=== PATIENT | female | born 1945 | race Caucasian/White ===

== ENCOUNTER 2016-08-06 21:17 | Inpatient (IN) | payer OTHER ==
[2016-08-06] MEDS ORDERED: IPRATROPIUM/ALBUTEROL SULFATE 3 ML NEB NEB ONE (21:27)
[2016-08-06] MEDS ORDERED: ONDANSETRON 4 MG/2 ML VIAL IVP ONE (21:27)
[2016-08-06] MEDS ORDERED: LORazepam 2 MG/1 ML VIAL IVP ONE (21:27)
[2016-08-06] MEDS ORDERED: Sodium Chloride 0.9% 1,000 ML PRIMARY IV ONE (21:27)
--- NOTE | 2016-08-06 21:35 | PDOC ---
Dyspnea HPI - General Chief Complaint: Respiratory Complaint Stated Complaint: SOB Date Seen by Provider: 08/06/16 Time Seen by Provider: 21:30 Source: POSITIVE: Patient, Spouse Exam Limitations: POSITIVE: No limitations Treatment Prior to Arrival: REPORTS: Oxygen Nurse's Notes Reviewed & Considered: Yes - History of Present Illness Initial Comments: Patient comes in today with a chief complaint of shortness of breath. Patient is complaining of shortness of breath and chest pressure. Her symptoms began several days ago while visiting in [place]. Her shortness of breath at that time seemed to improve slightly on her way rest until arrived in [place] last night. Bleeding [place] today and continuing to [place] her shortness of breath has continued to get worse. He is now unable to speak in full sentences complaining of chest pressure that is nonradiating. She has a history of 3 previous MIs, stent placement, open heart surgery for valve replacement. She denies smoking however her does smoke. Presently patient lives in [facility] at approximately 3000 feet of elevation. She has had nausea and an episode of vomiting. Denies any diarrhea. She has intermittent abdominal distention and abdominal pain that has been of long-standing duration. She denies any hematuria or dysuria, no rashes. Body Location Affected: REPORTS: Chest Timing: REPORTS: Constant Duration: Unknown Severity: Severe Quality: REPORTS: Pressure Initiating Event: REPORTS: Upper Respiratory Illness Context: REPORTS: Sleep (Patient must sleep sitting up.) Exacerbated By: REPORTS: Exertion, Laying Flat, Coughing Associated Symptoms: REPORTS: Fever, Chills, Sweating, Chest Discomfort, Left Chest, Chest Tightness, Painful Breathing, Leg Pain, Calf Pain ( left greater than right with calf swelling present), Ankle Swelling (Bilateral leg edema +2 with left greater than right), Leg Swelling, Anxiety Similar Symptoms Previously: No Recently seen/treated/hospitalized: No Any Prior Injuries Related to Current Complaint?: No - Patient Home Medications Home Medications: Home Medications Amlodipine Besylate 5 mg PO DAILY 08/06/16 Bisoprolol Fumarate 5 mg PO DAILY 08/06/16 Dabigatran Etexilate Mesylate [Pradaxa] 110 mg PO DAILY 08/06/16 Dexlansoprazole [Dexilant] 60 mg PO DAILY 08/06/16 Diamicron 30 mg PO DAILY 08/06/16 Estradiol 0.5 mg PO DAILY 08/06/16 Furosemide [Lasix] 40 mg PO DAILY 08/06/16 LORazepam Tab [Ativan Tab] 1 mg PO DAILY 08/06/16 Mirabegron [Myrbetriq] 50 mg PO DAILY 08/06/16 Paroxetine HCl [Paxil] 20 mg PO DAILY 08/06/16 Rosuvastatin Calcium 10 mg PO DAILY 08/06/16 Spironolactone 25 mg PO DAILY 08/06/16 Telmisartan 80 mg PO DAILY 08/06/16 metFORMIN Tab [Glucophage Tab] 500 mg PO DAILY 08/06/16 - Patient Allergies Allergies/Adverse Reactions: Allergies Allergy/AdvReac Type Severity Reaction Status Date / Time codeine AdvReac SHORTNESS Verified 08/06/16 21:32 OF BREATH ROS - Limitations ROS Limitations: No Limitations Constitution: REPORTS: Chills, Fever, Diaphoresis Cardiovascular: REPORTS: Chest Pain, Heart Palpitations Respiratory: REPORTS: Cough Productive, Hurts To Breathe, Shortness Of Breath Neurological: REPORTS: Denies Neuro Symptoms Gastrointestinal: REPORTS: Abdominal Pain, Nausea, Vomitting Endocrine: REPORTS: Denies Symptoms Musculoskeletal: REPORTS: Calf Pain (Left calf pain), Lower Extremity Swelling ( Bilateral lower extremity swelling left greater than right) Genitourinary: REPORTS: Denies Symptoms Eyes: REPORTS: Denies Symptoms ENT: REPORTS: Denies Symptoms Skin: REPORTS: Denies Skin Symptoms Lympathic: REPORTS: Denies Lympathic Symptoms Immunologic: POSITIVE: Denies Symptoms Psychiatric: POSITIVE: Anxiety Dyspnea Physical Exam - General Appearance General Appearance: REPORTS: Alert, Cooperative, No Evidence of Trauma, Severe Distress - HEENT HEENT: POSITIVE: Head Inspection Nml, Eyes Inspection Nml, Ears Inspection Nml, Nose Inspection Nml, PERRL, EOMI - Neck Neck: REPORTS: Normal Inspection - Respiratory Respiratory: REPORTS: Respiratory Distress, Wheezes, Prolonged Expirations, Accessory Muscle Use, Decreased Air Movement, Speaks Broken Sentences - Cardiovascular Cardiovascular: REPORTS: Equal Pulses, Strong Pulses, No Murmur, No Gallop, No Friction Rub, Tachycardia Peripheral Pulses: Radial (R): 3+, Radial (L): 3+ - Abdomen Abdomen: Soft: (All Quadrants), Normal Bowel Sounds: (All Quadrants), Denies Tenderness: (All Quadrants) - Skin Skin: REPORTS: Intact, Normal For Race, Warm, Dry, No Rash - Extremities Extremity: Non-Tender: (RUE), (LUE), Normal ROM: (All Extremities), Normal Inspection: (RUE), (LUE), Pelvis Stable: (All Extremities), Edema / Swelling: ( RLE), (LLE), Calf Tenderness: (LLE), Positive Geo's Sign: (LLE) - Neurological / Psychological Neurological: POSITIVE: Affect Apporpriate, Oriented X3, Motor Normal, Sensation Normal Dyspnea Progress - Results Reviewed by me Xrays/CTs/US Reviewed by me: Yes Discussed with Radiologist: Yes Lab Results Reviewed: Yes Lab Results:: Laboratory Results 08/06/16 Range/Units 21:33 WBC 10.00 (4.8-10.8) 10^3/uL RBC 4.24 (4.20-5.40) 10^6/uL Hgb 9.4 L (12.0-16.0) g/dL Hct 32.4 L (37.0-47.0) % MCV 76.4 L (81-99) FL MCH 22.2 L (27-31) PG MCHC 29.0 L (33-37) g/dL RDW Std Deviation 53.6 H (39-50) fL RDW Coeff of Brynn 20.5 H (11.5-14.5) % Plt Count 511 H (140-350) 10*3/uL MPV 10.1 (7.4-12.2) FL Immature Gran % (Auto) 0.5 (0-5) % Neut % (Auto) 77.8 (50-80) % Lymph % (Auto) 15.2 (10-50) % [place] % (Auto) 4.9 L (5-15) % Eos % (Auto) 0.9 (0-8) % Baso % (Auto) 0.7 (0-1) % Immature Gran # (Auto) 0.05 10*3/UL Neut # (Auto) 7.78 10*3/UL Lymph # (Auto) 1.52 10*3/uL [place] # (Auto) 0.49 (0.3-0.8) 10*3/UL Eos # (Auto) 0.09 10*3/UL Baso # (Auto) 0.07 10*3/UL WBC Morphology Comment Normal morphology (NORM) Plt Morphology Comment Normal morphology (NORM) RBC Morph Comment Normal morphology (NORM) PT 13.9 H (9.7-11.4) secs INR 1.34 (0.00-5.90) N/A D-Dimer 7.00 H (0.00-0.59) mg/L Sodium 141 (135-145) meq/L Potassium 4.0 (3.8-5.2) meq/L Chloride 99 (98-112) meq/L Carbon Dioxide 26 (23-33) meq/L Anion Gap 16 (5-20) BUN 33 H (7-22) mg/dL Creatinine 1.2 (0.50-1.20) mg/dL Estimated GFR (>60 ml/min/1.73m(2)) BUN/Creatinine Ratio 27.50 H (6-20) Glucose 193 H (78-110) mg/dL Calculated Osmolality 303.0 H (267-292) mOsm/kg Calcium 10.0 (8.7-10.7) mg/dL Magnesium 1.6 (1.6-2.4) mg/dL Total Bilirubin 1.2 (0.3-1.2) mg/dL AST 99 H (8-39) IU/L ALT 74 H (9-52) IU/L Alkaline Phosphatase 107 (38-126) IU/L Total Creatine Kinase 41 (30-136) IU/L Troponin I < 0.012 (< 0.040) ng/mL C-Reactive Protein 2.4 H (0.0-0.9) mg/dL NT-Pro-B Natriuret Pep 2380 H (0-125) PG/ML Total Protein 8.3 H (6.1-8.0) g/dL Albumin 4.4 (3.5-4.8) g/dL Globulin 3.9 (2.50-4.10) g/dL Albumin/Globulin Ratio 1.10 L (1.3-2.0) mg/g TSH 3.42 (0.2700-4.2000) uIU/mL Free T4 1.87 H (0.93-1.71) ng/dL EKG Interpreted/Reviewed By Me:: Yes EKG Interpretation:: POSITIVE: Normal Sinus Rhythm - Patient's Progress Pain Medication Addressed: POSITIVE: Not Applicable Re-Examine Time: 23:30 Status: POSITIVE: Improved MDM / ED Course: Patient was evaluated, IV started, blood drawn and sent to the lab for studies, radiographic studies were obtained. ER course: Patient received sublingual nitroglycerin without improvement of chest pressure. She received a DuoNeb nebulizer treatment. Zofran and Ativan were provided IV. Patient was placed on 2 L nasal cannula oxygen. X Findings: CBC shows an anemia with a hemoglobin of 9 hematocrit of 32. Comprehensive metabolic panel shows a creatinine of 1.2, elevated liver functions. INR is normal, PTT is slightly elevated, d-dimer is elevated to 7. Troponin is less than 0.012. EKG shows a sinus rhythm. CT scan of her chest shows bilateral pleural effusions which are large and a loculated right pleural effusion within the main fissure. There is no evidence of pulmonary embolism. Possible etiology of pleural effusions I think are potentially related to cardiogenic edema. Assessment: Pleural effusions possibly related to cardiogenic edema secondary to the patient's cardiac history. Anemia. Hypoxia related to the pleural effusions. Plan: Admission, Lasix, oxygen to maintain saturations above 90%. Air Movement: POSITIVE: Fair Quality Measure Initiative: CP/AMI: POSITIVE: EKG Quality Measure Initiative: CAP: POSITIVE: SaO2, CXR or CT - Consult Consult (If Yes, Name of Consulting MD & Time Called): Yes (Dr. Jamison [id number]) Consulting MD will see pt:: POSITIVE: [facility] Admit Counseled: POSITIVE: Patient, Family, RE: Lab Results, RE: Radiology Results, RE : DX Patient Care Time - Estimated PCT Patient Care Time (In Minutes): 45 Vital Signs - VS Reviewed Vital Signs Reviewed: Yes Discharge Clinical Impression: Bilateral pleural effusion Discharge Disposition: Admit to Inpatient Condition: Stable Date Decision to Admit to Inpatient: 08/06/16 Time Decision to Admit to Inpatient: 23:31
[2016-08-06 21:36] LABS: BASOPHILS # (AUTO) 0.07 10*3/UL; BASOPHILS % (AUTO) 0.7 % (0-1); EOSINOPHILS # (AUTO) 0.09 10*3/UL; EOSINOPHILS % (AUTO) 0.9 % (0-8); HEMATOCRIT 32.4 % (37.0-47.0); HEMOGLOBIN 9.4 g/dL (12.0-16.0); LYMPHOCYTES # (AUTO) 1.52 10*3/uL; MEAN CORPUSCULAR HEMOGLOBIN 22.2 PG (27-31); MEAN CORPUSCULAR VOLUME 76.4 FL (81-99); MEAN PLATELET VOLUME 10.1 FL (7.4-12.2); MONOCYTES # (AUTO) 0.49 10*3/UL (0.3-0.8); MONOCYTES % (AUTO) 4.9 % (5-15); NEUTROPHILS # (AUTO) 7.78 10*3/UL; NEUTROPHILS % (AUTO) 77.8 % (50-80); RED BLOOD COUNT 4.24 10^6/uL (4.20-5.40)
[2016-08-06 21:37] LABS: PLATELET MORPHOLOGY COMMENT NORMAL MORPHOLOGY (NORM); RBC MORPHOLOGY COMMENT NORMAL MORPHOLOGY (NORM); WBC MORPHOLOGY COMMENT NORMAL MORPHOLOGY (NORM)
[2016-08-06] MEDS: NITROGLYCERIN 0.4 MG SL TAB (BOTTLE OF 3) SL ONE ×2 (21:41→22:02)
[2016-08-06 21:46] LABS: BUN/CREATININE RATIO 27.5 (6-20); MAGNESIUM 1.6 mg/dL (1.6-2.4); SERUM ALBUMIN 4.4 g/dL (3.5-4.8)
[2016-08-06 22:11] LABS: FREE T4 (FREE THYROXINE) 1.87 ng/dL (0.93-1.71)
[2016-08-06] MEDS ORDERED: FUROSEMIDE 10 MG/1 ML - 4 ML IM ONE (23:16)
[2016-08-06] MEDS ORDERED: Sodium Chloride 0.9% 100 ML IV ONE (23:48)
[2016-08-07] MEDS ORDERED: NORMAL SALINE 10 ML SYRINGE FLUSH IVP PRN ×3 (00:54→14:48)
[2016-08-07] MEDS ORDERED: LIDOCAINE W/ SODIUM BICARB 0.5 ML SYR SUBD PRN ×3 (00:54→14:48)
[2016-08-07] MEDS ORDERED: Pneumococcal Vacc 13 Syringe 0.5 ML DISP.SYRIN IM SCH (01:00)
[2016-08-07] MEDS ORDERED: SODIUM CHLORIDE 0.9% IV SCH (01:30)
[2016-08-07] MEDS ORDERED: ESMOLOL IV SCH (01:30)
--- NOTE | 2016-08-07 01:33 | PDOC ---
History and Physical - History of Present Illness Date and Time of Service: 08/06/2016 23:50 PM Chief Complaint: Shortness of breath of 4 days duration History of Present Illness: This is a 70 years old the female was from [place] with past medical history significant for history of previous MIs she said 3, history of valve replacement because of "leaky valve" not sure which one with bioprosthetic valve, diabetes, atrial fibrillation, depression, on oxygen intermittently, hypertension , anemia and bladder issues who presented to the hospital because of history of shortness of breath that started 4 days ago, shortness of breath is exertional she walks few steps and then she will feel short of breath, she did report also orthopnea and PND there is some swelling in her legs she did report palpitations and some chest tightness continuous for the last 4 days but no chest pain. Because of all these symptoms she came into the ER found to be in congestive heart failure given Lasix and she was admitted. A CT of the chest showed the bilateral pleural effusion which is loculated on the right major fissure. Currently she said she feels better compared to when she came in. She is denying chest tightness now. He said she did vomit yesterday. She wasn't sure in which state they were before they arrived in [place]. Past Medical History Medical History: 1. Hypertension. 2. Diabetes on oral hypoglycemic agent. 3. Atrial fibrillation. 4. History of previous the valve replacement with bioprosthetic valve in 2008 she is not sure which one. 5. History of previous 3 heart attacks according to her. 6. Depression. 7. Anemia. 8. Bladder incontinence. 9. History of TB in childhood. 10. History of admission to hospital in [place] for fluid in her lungs. 11. She has oxygen with her but she doesn't wear it all the time. She wears it when she needs it Surgical History: 1. History of for valve replacement in 2008, she's not sure which valve but they use bioprosthetic valve. She's not sure whether she had bypasses, but they did take a vein from the left leg. Family History: Reviewed an Not Pertinent Past Social History: She smoked in her 20s, doesn't drink no drugs. They live in [facility] they are in the state often as her apparently sometimes works here. They've been here in the states since end of June. She is not sure which states she was in before she ended up her in [place]. Tobacco Use: Former Smoker Substance Use Type: None Alcohol Use: Rarely Medication / Allergies Home Medications: Home Medications Medication Instructions Recorded Confirmed Type Amlodipine Besylate 5 mg PO DAILY 08/06/16 08/06/16 History Bisoprolol Fumarate 5 mg PO DAILY 08/06/16 08/06/16 History Dabigatran Etexilate Mesylate 110 mg PO DAILY 08/06/16 08/06/16 History [Pradaxa] Dexlansoprazole [Dexilant] 60 mg PO DAILY 08/06/16 08/06/16 History Diamicron 30 mg PO DAILY 08/06/16 08/06/16 History Estradiol 0.5 mg PO DAILY 08/06/16 08/06/16 History Furosemide [Lasix] 40 mg PO DAILY 08/06/16 08/06/16 History LORazepam Tab [Ativan Tab] 1 mg PO DAILY 08/06/16 08/06/16 History Mirabegron [Myrbetriq] 50 mg PO DAILY 08/06/16 08/06/16 History Paroxetine HCl [Paxil] 20 mg PO DAILY 08/06/16 08/06/16 History Rosuvastatin Calcium 10 mg PO DAILY 08/06/16 08/06/16 History Spironolactone 25 mg PO DAILY 08/06/16 08/06/16 History Telmisartan 80 mg PO DAILY 08/06/16 08/06/16 History metFORMIN Tab [Glucophage Tab] 500 mg PO DAILY 08/06/16 08/06/16 History Allergies/Adverse Reactions: Allergies Allergy/AdvReac Type Severity Reaction Status Date / Time codeine AdvReac SHORTNESS Verified 08/06/16 21:32 OF BREATH Review of Systems - Review of Systems All Systems: Reviewed & No Additional Complaints Except as Stated Exam - Vitals Vital Signs: Vital Signs Temperature 97.5 F Temperature Source Temporal Artery Scan Pulse Rate [Telemetry] 132 Pulse Rate 120 Respiratory Rate 20 Blood Pressure 124/75 Pulse Ox 92 Oxygen Flow Rate 4 Oxygen Delivery Method Nasal Cannula Height 5 ft 3 in Weight 162 lb - General General Appearance: POSITIVE: No Acute Distress, Thin - Head Head Exam: POSITIVE: Normal Inspection - Eye Eye Exam: POSITIVE: Normal Appearance - ENT ENT Exam: POSITIVE: Normal Exam - Neck Neck Exam: POSITIVE: JVP is Raised - Respiratory Additional Respiratory Exam Details: Few crackles at the bases - Cardiovascular Cardiovascular Exam: POSITIVE: Tachycardia, Systolic Murmur - GI/Abdominal GI/Abdominal Exam: POSITIVE: Normal Bowel Sounds, Non Tender, Non Distended, Soft - Rectal Rectal Exam: POSITIVE: Deferred - External Exam: POSITIVE: Deferred - Extremities Extremities Exam: POSITIVE: +1 Edema - Back Back Exam: POSITIVE: Normal Inspection - Neurological Neurological Exam: POSITIVE: Alert, Oriented x 3, CN II-XII Intact, Moves All Extremities Equally - Psychiatric Psychiatric Exam: POSITIVE: Normal Affect - Integumentary Integumentary Exam: POSITIVE: Pallor Results - Labs CBC and BMP: 08/06/16 21:33 08/06/16 21:33 - EKG Data -: EKG Interpreted by Me (EKG showed narrow QRS complex tachycardia, right axis deviation, the rhythm looks like atrial flutter. Rate about 118. Q waves in the inferior leads noted.) - Imaging Status: Image Pending (Chest x-ray showed cardiomegaly with the loculated effusion in the major fissure. Also some effusion on the left side.), Report Reviewed by Me (CT of the chest showed no evidence of pulmonary embolism, bilateral pleural effusions, cardiomegaly and a loculated right pleural effusion with some groundglass density within the left lung was consistent with edema. His may represent cardiogenic edema. Ultrasound of the leg showed no evidence of for DVT.) Assessment and Plan - Patient Problems (1) Congestive heart failure Current Visit: Yes Status: Acute Comment: Symptoms suggestive of congestive heart failure, she got Lasix will continue with Lasix. Will do an echocardiogram in the a.m. exacerbation factor could be the arrhythmia as rate is fast and suggestive of atrial flutter. We' ll move her to the ICU and will try esmolol drip that works we may may consider oral metoprolol to slow her down. (2) Supraventricular tachycardia Current Visit: Yes Status: Acute Comment: The EKG shows narrow QRS tachycardia, she gave a history of A. fib but this one looks regular looks like more atrial flutter. She is on anticoagulant will try esmolol and see whether we can slow her down with a drip and then later on will consider oral metoprolol to slow her down further. (3) Diabetes Current Visit: Yes Status: Acute Comment: We'll hold her metformin because she got contrast. We will Put her on sliding scale. (4) Hypertension Current Visit: Yes Status: Acute Comment: Continue previous medication but will hold amlodipine and Bisprolol (5) Depression Current Visit: Yes Status: Acute Comment: Continue previous medications (6) Anemia Current Visit: Yes Status: Acute Comment: She has long history of anemia according to her, this looks microcytic anemia, check ferritin level. Photo / Body Diagrams - Uploaded Photos Uploaded Photos:
[2016-08-07] MEDS ORDERED: DIGOXIN IV ONE (02:18)
[2016-08-07] MEDS ORDERED: SODIUM CHLORIDE 0.9% IV ONE (02:18)
--- NOTE | 2016-08-07 02:26 | EKG ---
[address] [address] Measurements Intervals [place] Rate: 120 P: LA: 0 QRS: 118 QRSD: 108 T: 120 QT: 219 QTc: 290 Interpretive Statements POSSIBLE ATRIAL FLUTTER/TACHYCARDIA WITH RAPID VENTRICULAR RESPONSE PROBABLE INFERIOR MYOCARDIAL INFARCTION [35 ms Q WAVE IN II/aVF], PROBABLY OLD WITH POSTERIOR EXTENSION [PROMINENT R WAVE IN V1 No previous ECG available for comparison Electronically Signed On 08-07-16 08:28:29 MDT by Huber Coppola MD [id number]
--- NOTE | 2016-08-07 02:26 | EKG ---
[address] [address] Measurements Intervals [place] Rate: 118 P: DE: 0 QRS: 113 QRSD: 102 T: 153 QT: 360 QTc: 430 Interpretive Statements ATRIAL FLUTTER/TACHYCARDIA WITH RAPID VENTRICULAR RESPONSE PROBABLE INFERIOR MYOCARDIAL INFARCTION [35 ms Q WAVE IN II/aVF], PROBABLY OLD WITH POSTERIOR EXTENSION [PROMINENT R WAVE IN V1 No change since study 4 hours ago Electronically Signed On 08-07-16 08:29:50 MDT by Huber Coppola MD [email or web address]
[2016-08-07] MEDS ORDERED: DIGOXIN ONE (02:34)
[2016-08-07] MEDS ORDERED: Sodium Chloride 0.9% 50 ML IV ONE (02:35)
[2016-08-07] MEDS: FUROSEMIDE 10 MG/1 ML - 4 ML IVP SCH ×2 (06:50→13:30)
[2016-08-07] MEDS ORDERED: FUROSEMIDE 10 MG/1 ML - 4 ML IVP SCH (07:00)
[2016-08-07 07:48] LABS: CALCIUM 9.6 mg/dL (8.7-10.7)
--- NOTE | 2016-08-07 08:14 | DI ---
XR CXR 1VW,08/06/2016 9:27 PM: Clinical History: Chest pain Previous Exam: None at this facility. Findings: A single frontal radiograph of the chest is obtained, and demonstrates some blunting of the costophre rosalino angles bilaterally consistent with pleural effusions. There is also a loculated pleural effusion within the right major fissure. Overlying sternotomy wires are noted. The lungs otherwise appear clear. Impression: New bilateral pleural effusions to include a loculated right pleural effusion.
--- NOTE | 2016-08-07 08:17 | DI ---
CT CTA CHEST NONCORONARY W/WO,08/06/2016 9:57 PM: Clinical History: Shortness of breath with elevated d-dimer. Previous Exam: None at this facility. Findings: Multiple helically acquired CT images are obtained through the chest following a CT chest angiogram p rotocol, and demonstrate large bilateral pleural effusions. There is a loculated pleural effusion wit hin the right major fissure. Coronary artery calcifications are seen. There are some calcified mediastinal lymph nodes as well as a few calcified granulomas within the rig ht lung base. There is some mild diffuse edema involving the left lung. Skeletal structures are unremarkable. Peripheral vascular disease is seen. The upper abdomen is unremarkable. Impression: Large bilateral pleural effusions with a loculated effusion within the right middle lobe. No evidence of pulmonary embolism. Mild pulmonary edema seen best on the left.
--- NOTE | 2016-08-07 08:21 | DI ---
US UP/LOW EXTREMITY VEINS B/L,08/06/2016 9:27 PM: Clinical History: Bilateral lower extremity pain and swelling. Previous Exam: None at this facility. Findings: Multiple grayscale and color Doppler sonographic images are obtained of the deep veins of both lower extremities, and demonstrate complete coaptation upon graded compression throughout. There is no evid ence of echogenic thrombus. There are normal venous Doppler flow patterns bilaterally. Impression: No evidence of deep venous thrombosis.
[2016-08-07] MEDS ORDERED: Spironolactone Tab 25 MG TAB PO SCH ×2 (09:00)
[2016-08-07] MEDS ORDERED: TELMISARTAN 80 MG PO SCH ×2 (09:00)
[2016-08-07] MEDS ORDERED: PARoxetine Tab 20 MG TAB PO SCH (09:00)
[2016-08-07] MEDS ORDERED: DABIGATRAN ETEXILATE MESYLATE 110 MG PO SCH ×2 (09:00→09:30)
[2016-08-07] MEDS ORDERED: DIGOXIN 125 MCG TABLET PO SCH (09:00)
[2016-08-07] MEDS ORDERED: LORazepam 1 MG TABLET PO PRN ×2 (09:00→14:48)
[2016-08-07] MEDS ORDERED: ROSUVASTATIN 10 MG PO SCH ×2 (09:00→21:00)
[2016-08-07] MEDS ORDERED: MIRABEGRON 50 MG PO SCH ×2 (09:00)
[2016-08-07] MEDS ORDERED: [UNRECOGNIZED DRUG - OTHER] PO SCH (09:30)
[2016-08-07] MEDS: ROSUVASTATIN 10 MG PO SCH (09:40)
--- NOTE | 2016-08-07 13:12 | PDOC(PROG) ---
Interval History: Patient seems to feel better this morning less short of breath no chest pain no nausea no vomiting. After talking to her for a bit and she does admit to eating a lot of/Irish soup with elevated amounts of sodium which is I believe what the put her in a congestive heart failure with bilateral pleural effusions Objective : Data - Labs CBC and BMP: 08/06/16 21:33 08/07/16 06:59 Labs - Last 24 Hours: Laboratory Results 08/07/16 Range/Units 06:59 Sodium 140 (135-145) meq/L Potassium 4.1 (3.8-5.2) meq/L Chloride 97 L (98-112) meq/L Carbon Dioxide 28 (23-33) meq/L Anion Gap 15 (5-20) BUN 30 H (7-22) mg/dL Creatinine 1.0 (0.50-1.20) mg/dL Estimated GFR (>60 ml/min/1.73m(2)) BUN/Creatinine Ratio 30.00 H (6-20) Glucose 154 H (78-110) mg/dL Calculated Osmolality 298.0 H (267-292) mOsm/kg Calcium 9.6 (8.7-10.7) mg/dL Ferritin 40.60 (12.00-336.70) ng/mL Troponin I 0.014 (< 0.040) ng/mL Objective : Exam - General General Appearance: Cooperative - Head Head Exam: Normal Inspection - Eye Eye Exam: Normal Appearance - Respiratory Respiratory Exam: Clear to Auscultation - Bilaterally, Breathing Non Labored - Cardiovascular Cardiovascular Exam: RRR, No Murmur, No Clicks - GI/Abdominal GI/Abdominal Exam: Soft, No Masses - Extremities Extremities Exam: No Clubbing Present, No Edema Present, No Cyanosis Present - Neurological Neurological Exam: Alert, Oriented x 3 Photo / Body Diagrams - Uploaded Photos Uploaded Photos:
[2016-08-07] MEDS ORDERED: Magnesium Sulfate 2gm (Premix) 2 GM in Premix 1 BAG IV ONE (15:29)
[2016-08-07] MEDS: DIAMICRON PO SCH (20:38)
[2016-08-07] MEDS ORDERED: INSULIN REGULAR, HUMAN 100 UNIT/1 ML - 3 ML SUBCUT ONE (21:00)
[2016-08-07] MEDS ORDERED: PATIENT OWN MED: PO SCH (21:00)
[2016-08-08 06:11] LABS: HEMATOCRIT 32.8 % (37.0-47.0); HEMOGLOBIN 9.3 g/dL (12.0-16.0); MEAN CORPUSCULAR HEMOGLOBIN 21.9 PG (27-31); MEAN CORPUSCULAR HGB CONC 28.4 g/dL (33-37); MEAN CORPUSCULAR VOLUME 77.4 FL (81-99); MEAN PLATELET VOLUME 10.2 FL (7.4-12.2); RED BLOOD COUNT 4.24 10^6/uL (4.20-5.40)
[2016-08-08 06:28] LABS: CALCIUM 9.3 mg/dL (8.7-10.7); MAGNESIUM 1.9 mg/dL (1.6-2.4); SERUM ALBUMIN 3.7 g/dL (3.5-4.8)
[2016-08-08] MEDS ORDERED: FUROSEMIDE 10 MG/1 ML - 4 ML IVP SCH (07:00)
[2016-08-08 07:02] LABS: PLATELET MORPHOLOGY COMMENT NORMAL MORPHOLOGY (NORM); WBC MORPHOLOGY COMMENT NORMAL MORPHOLOGY (NORM)
[2016-08-08 07:03] LABS: RBC MORPHOLOGY COMMENT SEE COMMENTS (NORM)
[2016-08-08] MEDS ORDERED: MIRABEGRON 50 MG PO SCH (09:00)
[2016-08-08] MEDS ORDERED: Spironolactone Tab 25 MG TAB PO SCH (09:00)
[2016-08-08] MEDS ORDERED: ESTRADIOL 0.5 MG PO SCH (09:00)
[2016-08-08] MEDS ORDERED: [UNRECOGNIZED DRUG - OTHER] PO SCH (09:00)
[2016-08-08] MEDS ORDERED: PATIENT OWN MED: PO SCH (09:00)
[2016-08-08] MEDS ORDERED: DIGOXIN 125 MCG TABLET PO SCH (09:00)
[2016-08-08] MEDS ORDERED: PARoxetine Tab 20 MG TAB PO SCH (09:00)
[2016-08-08] MEDS ORDERED: AmLODIPine Tab 5 MG TABLET PO SCH (09:00)
[2016-08-08] MEDS ORDERED: BISOPROLOL FUMARATE 5 MG PO SCH ×2 (09:00)
[2016-08-08] MEDS ORDERED: LOSARTAN 50 MG TABLET PO SCH ×2 (09:00)
[2016-08-08] MEDS: DIAMICRON PO SCH (09:05)
[2016-08-08] MEDS: ROSUVASTATIN 10 MG PO SCH (09:06)
[2016-08-08 09:24] LABS: BAND NEUTROPHILS % 0 % (0-10); BASOPHILS % (MANUAL) 2 % (0-1); EOSINOPHILS % (MANUAL) 2 % (0-8); LYMPHOCYTES % (MANUAL) 5 % (10-50); METAMYELOCYTES % 0 %; MONOCYTES % (MANUAL) 5 % (0-12); MYELOCYTES % 0 %; NEUTROPHILS % (MANUAL) 86 % (50-80); PROMYELOCYTES % 0 %
[2016-08-08 11:18] VITALS: RESP 16; TEMP 97.3
[2016-08-08] MEDS ORDERED: Magnesium Sulfate 2gm (Premix) 2 GM in Premix 1 BAG IV ONE (11:23)
[2016-08-08] MEDS ORDERED: Magnesium Sulfate 2gm (Premix) 50 ML IV ONE (11:47)
--- NOTE | 2016-08-08 13:49 | DCSUMMARY ---
Hospitalization Summary Hospital Course: Final Discharge Diagnosis: Current Visit Problems Problem Status Priority Diagnosed Code Anemia Acute D64.9 Bilateral pleural effusion Acute J90 Congestive heart failure Acute I50.9 Depression Acute F32.9 Diabetes Acute E11.9 Hypertension Acute I10 Supraventricular tachycardia Acute I47.1 Diagnostic Data, Laboratory Data, and Procedures of Signifigance: Laboratory Results 08/06/16 08/07/16 08/07/16 Range/Units 21:33 06:59 13:29 WBC 10.00 (4.8-10.8) 10^3/uL RBC 4.24 (4.20-5.40) 10^6/uL Hgb 9.4 L (12.0-16.0) g/dL Hct 32.4 L (37.0-47.0) % MCV 76.4 L (81-99) FL MCH 22.2 L (27-31) PG MCHC 29.0 L (33-37) g/dL RDW Std Deviation 53.6 H (39-50) fL RDW Coeff of Brynn 20.5 H (11.5-14.5) % Plt Count 511 H (140-350) 10*3/uL MPV 10.1 (7.4-12.2) FL Immature Gran % (Auto) 0.5 (0-5) % Neut % (Auto) 77.8 (50-80) % Lymph % (Auto) 15.2 (10-50) % Ralls % (Auto) 4.9 L (5-15) % Eos % (Auto) 0.9 (0-8) % Baso % (Auto) 0.7 (0-1) % Immature Gran # (Auto) 0.05 10*3/UL Neut # (Auto) 7.78 10*3/UL Lymph # (Auto) 1.52 10*3/uL Ralls # (Auto) 0.49 (0.3-0.8) 10*3/UL Eos # (Auto) 0.09 10*3/UL Baso # (Auto) 0.07 10*3/UL Neutrophils % (Manual) (50-80) % Band Neutrophils % (0-10) % Lymphocytes % (Manual) (10-50) % Monocytes % (Manual) (0-12) % Eosinophils % (Manual) (0-8) % Basophils % (Manual) (0-1) % Metamyelocytes % % Myelocytes % % Promyelocytes % % Blast Cells (0-1) % WBC Morphology Comment Normal morphology (NORM) Plt Morphology Comment Normal morphology (NORM) RBC Morph Comment Normal morphology (NORM) PT 13.9 H (9.7-11.4) secs INR 1.34 (0.00-5.90) N/A D-Dimer 7.00 H (0.00-0.59) mg/L Sodium 141 140 (135-145) meq/L Potassium 4.0 4.1 (3.8-5.2) meq/L Chloride 99 97 L (98-112) meq/L Carbon Dioxide 26 28 (23-33) meq/L Anion Gap 16 15 (5-20) BUN 33 H 30 H (7-22) mg/dL Creatinine 1.2 1.0 (0.50-1.20) mg/dL Estimated GFR (>60 ml/min/1.73m(2)) BUN/Creatinine Ratio 27.50 H 30.00 H (6-20) Glucose 193 H 154 H (78-110) mg/dL Calculated Osmolality 303.0 H 298.0 H (267-292) mOsm/kg Calcium 10.0 9.6 (8.7-10.7) mg/dL Magnesium 1.6 1.5 L (1.6-2.4) mg/dL Ferritin 40.60 (12.00-336.70) ng/mL Total Bilirubin 1.2 (0.3-1.2) mg/dL AST 99 H (8-39) IU/L ALT 74 H (9-52) IU/L Alkaline Phosphatase 107 (38-126) IU/L Total Creatine Kinase 41 (30-136) IU/L Troponin I < 0.012 0.014 (< 0.040) ng/mL C-Reactive Protein 2.4 H (0.0-0.9) mg/dL NT-Pro-B Natriuret Pep 2380 H (0-125) PG/ML Total Protein 8.3 H (6.1-8.0) g/dL Albumin 4.4 (3.5-4.8) g/dL Globulin 3.9 (2.50-4.10) g/dL Albumin/Globulin Ratio 1.10 L (1.3-2.0) mg/g TSH 3.42 (0.2700-4.2000) uIU/mL Free T4 1.87 H (0.93-1.71) ng/dL 08/08/16 Range/Units 05:37 WBC 7.36 (4.8-10.8) 10^3/uL RBC 4.24 (4.20-5.40) 10^6/uL Hgb 9.3 L (12.0-16.0) g/dL Hct 32.8 L (37.0-47.0) % MCV 77.4 L (81-99) FL MCH 21.9 L (27-31) PG MCHC 28.4 L (33-37) g/dL RDW Std Deviation 53.3 H (39-50) fL RDW Coeff of Brynn 20.0 H (11.5-14.5) % Plt Count 420 H (140-350) 10*3/uL MPV 10.2 (7.4-12.2) FL Immature Gran % (Auto) (0-5) % Neut % (Auto) (50-80) % Lymph % (Auto) (10-50) % Ralls % (Auto) (5-15) % Eos % (Auto) (0-8) % Baso % (Auto) (0-1) % Immature Gran # (Auto) 10*3/UL Neut # (Auto) 10*3/UL Lymph # (Auto) 10*3/uL Ralls # (Auto) (0.3-0.8) 10*3/UL Eos # (Auto) 10*3/UL Baso # (Auto) 10*3/UL Neutrophils % (Manual) 86 H (50-80) % Band Neutrophils % 0 (0-10) % Lymphocytes % (Manual) 5 L (10-50) % Monocytes % (Manual) 5 (0-12) % Eosinophils % (Manual) 2 (0-8) % Basophils % (Manual) 2 H (0-1) % Metamyelocytes % 0 % Myelocytes % 0 % Promyelocytes % 0 % Blast Cells 0 (0-1) % WBC Morphology Comment Normal morphology (NORM) Plt Morphology Comment Normal morphology (NORM) RBC Morph Comment See comments (NORM) PT (9.7-11.4) secs INR (0.00-5.90) N/A D-Dimer (0.00-0.59) mg/L Sodium 140 (135-145) meq/L Potassium 3.5 L (3.8-5.2) meq/L Chloride 96 L (98-112) meq/L Carbon Dioxide 31 (23-33) meq/L Anion Gap 13 (5-20) BUN 28 H (7-22) mg/dL Creatinine 1.0 (0.50-1.20) mg/dL Estimated GFR (>60 ml/min/1.73m(2)) BUN/Creatinine Ratio 28.00 H (6-20) Glucose 199 H (78-110) mg/dL Calculated Osmolality 301.0 H (267-292) mOsm/kg Calcium 9.3 (8.7-10.7) mg/dL Magnesium 1.9 (1.6-2.4) mg/dL Ferritin (12.00-336.70) ng/mL Total Bilirubin 1.0 (0.3-1.2) mg/dL AST 128 H (8-39) IU/L ALT 127 H D (9-52) IU/L Alkaline Phosphatase 84 (38-126) IU/L Total Creatine Kinase (30-136) IU/L Troponin I (< 0.040) ng/mL C-Reactive Protein (0.0-0.9) mg/dL NT-Pro-B Natriuret Pep (0-125) PG/ML Total Protein 7.5 (6.1-8.0) g/dL Albumin 3.7 (3.5-4.8) g/dL Globulin 3.7 (2.50-4.10) g/dL Albumin/Globulin Ratio 1.00 L (1.3-2.0) mg/g TSH (0.2700-4.2000) uIU/mL Free T4 (0.93-1.71) ng/dL History and Physical pertinent to Admission: Past Medical History Medical History: 1. Hypertension. 2. Diabetes on oral hypoglycemic agent. 3. Atrial fibrillation. 4. History of previous the valve replacement with bioprosthetic valve in 2008 she is not sure which one. 5. History of previous 3 heart attacks according to her. 6. Depression. 7. Anemia. 8. Bladder incontinence. 9. History of TB in childhood. 10. History of admission to hospital in [place] for fluid in her lungs. 11. She has oxygen with her but she doesn't wear it all the time. She wears it when she needs it Surgical History: 1. History of for valve replacement in 2008, she's not sure which valve but they use bioprosthetic valve. She's not sure whether she had bypasses, but they did take a vein from the left leg. Family History: Reviewed an Not Pertinent Past Social History: She smoked in her 20s, doesn't drink no drugs. They live in [facility] they are in the state often as her apparently sometimes works here. They've been here in the states since end of June. She is not sure which states she was in before she ended up her in [place]. Course of Hospitalization: This very nice 70-year-old female that is [place] from [place] she has extensive for coronary artery disease history with the 3 MIs and also history of a valve replacement she is unable to tolerate me which valve but after talking to Dr. Carla damon at [facility] most likely it's bioprosthetic valve mitral. As in with shortness of breath over the last 3 or 4 days and after talking to her at length she has been eating a lot of [place] and highly salted foods most likely this gave her congestive heart failure exacerbation with pleural effusions we had her on IV Lasix and diuresed her pretty well around 3-1/2 L and patient is back to her normal state her troponins remain negative verbal report from the fish and wildlife technician states her EF of 35%. She also has a history of A. fib and he was wondering why she wasn't with axilla for valvular A. fib and I discussed this with the patient and they will be discussing it with the fish and wildlife technician in [place] they are very anxious to get back on the road and go back home to see their own doctor she will be discharged with no change medication as per patient's request and in stable and improved condition this was also the recommendation from Dr. Aguirre cardiology in [place] that it was okay to discharge her and to follow-up with her fish and wildlife technician in [place] On the date of discharge, the patient was examined: Gen.: No acute distress, alert, nontoxic Heart: Irregularly irregular, no murmurs, clicks, gallops, or rubs Lungs: Clear to auscultation bilaterally, breathing is nonlabored Abdomen/GI: Normal tones on auscultation, soft, nontender, nondistended Musculoskeletal/extremities: No clubbing, cyanosis, or edema Vitals reviewed and are listed below Vital Signs (24 hrs) Temp Pulse Pulse Pulse Pulse Resp BP 08/08/16 11:17 97.3 F 100 16 98/64 08/08/16 09:34 97.4 F 101 H 20 96/62 08/08/16 08:57 88 08/08/16 07:00 97 88 08/08/16 06:00 88 101/68 08/08/16 05:00 98.8 F 88 16 101/68 08/08/16 04:00 88 101/68 08/08/16 03:56 08/08/16 03:00 93 08/08/16 00:49 97.9 F 92 20 106/59 08/08/16 00:00 92 106/59 08/07/16 23:00 91 08/07/16 20:00 96 118/63 08/07/16 19:00 90 96 94 16 08/07/16 16:00 118/63 08/07/16 15:00 94 08/07/16 14:00 101 H 113/67 Pulse Ox 08/08/16 11:17 97 08/08/16 09:34 96 08/08/16 08:57 08/08/16 07:00 08/08/16 06:00 08/08/16 05:00 95 08/08/16 04:00 08/08/16 03:56 93 08/08/16 03:00 08/08/16 00:49 96 08/08/16 00:00 08/07/16 23:00 08/07/16 20:00 08/07/16 19:00 08/07/16 16:00 08/07/16 15:00 08/07/16 14:00 Assessment and Plan: 1. As per discharge assessments above 2. Disposition: Home 3. Condition on discharge, stable and improved. 4. Diet: regular diet low-salt diet 5. Activities: resume normal activities 6. Follow-Up: 1. PCP 2. 7. Medications at the Time of Discharge: Home Medications Medication Instructions Recorded Confirmed Type Amlodipine Besylate 5 mg PO DAILY 08/06/16 08/06/16 History Bisoprolol Fumarate 5 mg PO DAILY 08/06/16 08/06/16 History Dabigatran Etexilate Mesylate 110 mg PO DAILY 08/06/16 08/06/16 History [Pradaxa] Dexlansoprazole [Dexilant] 60 mg PO DAILY 08/06/16 08/06/16 History Diamicron 30 mg PO DAILY 08/06/16 08/06/16 History Estradiol 0.5 mg PO DAILY 08/06/16 08/06/16 History Furosemide [Lasix] 40 mg PO DAILY 08/06/16 08/06/16 History LORazepam Tab [Ativan Tab] 1 mg PO DAILY 08/06/16 08/06/16 History Mirabegron [Myrbetriq] 50 mg PO DAILY 08/06/16 08/06/16 History Paroxetine HCl [Paxil] 20 mg PO DAILY 08/06/16 08/06/16 History Rosuvastatin Calcium 10 mg PO DAILY 08/06/16 08/06/16 History Spironolactone 25 mg PO DAILY 08/06/16 08/06/16 History Telmisartan 80 mg PO DAILY 08/06/16 08/06/16 History metFORMIN Tab [Glucophage Tab] 500 mg PO DAILY 08/06/16 08/06/16 History 8. Time, care, counseling and coordination of care for this discharge is greater than 30 minutes. Exam - Vitals Vital Signs: Vital Signs Temperature 97.3 F Temperature Source Temporal Artery Scan Pulse Rate [Pulse Oximeter] 100 Pulse Rate [Apical] 88 Pulse Rate [Telemetry] 88 Pulse Rate 88 Respiratory Rate 16 Blood Pressure [Right Arm] 98/64 Blood Pressure 124/75 Pulse Ox 97 Oxygen Flow Rate 4 Oxygen Delivery Method Nasal Cannula Height 5 ft 3 in Weight 72.983 kg
[2016-08-09] MEDS ORDERED: PANTOPRAZOLE 40 MG TABLET PO SCH (07:00)
[2016-08-09] MEDS ORDERED: metFORMIN 500 MG TABLET PO SCH (09:00)
== END 2016-08-08 14:09 | disposition home or self-care (01) | DRG 187 ==
LOC: ER 21:17 → MED/SURG 23:47 → ICU 08-07 01:15 → MED/SURG 08-07 13:12
PROVIDERS: ADMIT Internal Medicine; ATTEND Internal Medicine
DX: J90 Pleural effusion, not elsewhere classified (principal); I47.1 Supraventricular tachycardia; I50.9 Heart failure, unspecified; D64.9 Anemia, unspecified; F32.9 Major depressive disorder, single episode, unspecified; E11.9 Type 2 diabetes mellitus without complications; I10 Essential (primary) hypertension
CPT/HCPCS: 36415; 71010; 71275; 80048; 80053; 82550; 82728; 82948; 83735; 83880; 84439; 84443; 84484; 85007; 85025; 85379; 85610; 86140; 93005; 93010; 93306; 93970; 94640; 94761; 96374; 96375; 99285; J1160; J1940; J2060; J2405; J3475; J7030; J7050; J7620